=== PATIENT | male | born 1960 | race Caucasian/White ===

== ENCOUNTER 2024-08-23 10:04 | Emergency (ER) | payer OTHER ==
--- OUTSIDE RECORDS SUMMARY | 2024-08-23 10:08 | XMS REPORT | Continuity of Care Document ---
Author Name Unknown Address [address] [facility] [address] [place] [address] [facility] Address [address] [facility]. [address] [place] [address] Care Team Providers Care Records Analysis Manager Name Role Phone RERE HESS Attending Clinician Unavailthiago Roche Attending Clinician Unavailable Inocente Roche I. Attending Clinician UnavailFermin Huffman Attending Clinician Unavailable Kacy Vitale Attending Clinician Unavailable A_Byrd Attending Clinician Unavailable ZAYDA GUERRERO Attending Clinician UnavailSAM Souza Attending Clinician Unavailable ALEXANDER NAJERA Attending Clinician Unavailable KACY URENA Attending Clinician Unavailable CB MANCILLA Attending Clinician Unavailable AMARI LEON Attending Clinician Unavailable SUMEET PRICE Attending Clinician PRANEETH Begum Attending Clinician Unavailable DAYSI MAIER Attending Clinician Unavailable KONG ARANA Attending Clinician Unavailable RENATO NAVA Attending Clinician Unavailable REBECCA GRIFFIN Attending Clinician Unavailable SHARON BRONSON Attending Clinician Unavailable Kaley Admitting Clinician Unavailable A_Byrd Admitting Clinician Unavailable Payers Payer Name Policy Type Policy Number Effective Date Expirati on Date Source [facility] [employer] [id number] 2018 00:00:00 2021 00:00:00 Problems Condition Name Condition Details Condition Category Status Onset Date Resolution Date Last Treatment Date Treating Clinician Comments Source Carcinoma of prostate Carcinoma of Prostate Problem Active 2018-04 00:00: 00 [facility] Decreased hearing Decreased Hearing Problem Active 2018-04 00:00: 00 [facility] Urinary urgency due to benign prostatic hypertroph y Urinary Urgency Due to Benign Prostatic Hypertroph y Problem Active 2018-04 00:00: 00 [facility] Gastroesop hageal reflux disease Gastroesop hageal Reflux Disease Problem Active 07-29 00:00: 00 [facility] Candidiasi s of skin Candidiasi s of Skin Problem Active [facility] Secondary diabetes mellitus Secondary Diabetes Mellitus Problem Active [facility] Type 2 diabetes mellitus without complicati on Type 2 Diabetes Mellitus without Complicati on Problem Active [facility] Hyperlipid emia Hyperlipid emia Problem Active [facility] Impotence Impotence Problem Active [facility] Chronic depression Chronic Depression Problem Active [facility] Insomnia Insomnia Problem Active [facility] Essential hypertensi on Essential Hypertensi on Problem Active [facility] Acute pharyngiti s Acute Pharyngiti s Problem Active [facility] Pharyngiti s Pharyngiti s Problem Active [facility] Upper respirator y infection Upper Respirator y Infection Problem Active [facility] Bronchitis Bronchitis Problem Active [facility] Dyspnea Dyspnea Problem Active [facility] Cough Cough Problem Active [facility] Nausea Nausea Problem Active [facility] Hyperglyce michelle Hyperglyce michelle Problem Active [facility] 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 Minocycl ine Allergy to substanc e Active [facility] Vancomyc in Allergy to substanc e Active [facility] Social History Smoking Status Start Date Stop Date Source Former Smoker [facility] Medications Ordered Medication Name Filled Medication Name Start Date Stop Date Current Medication? Ordering Clinician Indication Dosage Frequency Signature (SIG) Comments Components Source alprazolam 0.25 mg tablet TAKE 1 TABLET BY MOUTH THREE TIMES DAILY NEEDED alprazolam 0.25 mg tablet TAKE 1 TABLET BY MOUTH THREE TIMES DAILY NEEDED No alprazolam 0.25 mg tablet TAKE 1 TABLET BY MOUTH THREE TIMES DAILY NEEDED [facility] atorvastati n 20 mg tablet TAKE 1 TABLET BY MOUTH EVERY DAY AT BEDTIME atorvastati n 20 mg tablet TAKE 1 TABLET BY MOUTH EVERY DAY AT BEDTIME No atorvastat in 20 mg tablet TAKE 1 TABLET BY MOUTH EVERY DAY AT BEDTIME [facility] benzonatate 200 mg capsule TAKE 1 CAPSULE BY MOUTH THREE TIMES DAILY benzonatate 200 mg capsule TAKE 1 CAPSULE BY MOUTH THREE TIMES DAILY No benzonatat e 200 mg capsule TAKE 1 CAPSULE BY MOUTH THREE TIMES DAILY [facility] carvedilol 3.125 mg tablet TAKE 1 TABLET BY MOUTH TWICE DAILY carvedilol 3.125 mg tablet TAKE 1 TABLET BY MOUTH TWICE DAILY No carvedilol 3.125 mg tablet TAKE 1 TABLET BY MOUTH TWICE DAILY [facility] dutasteride 0.5 mg capsule TAKE 1 CAPSULE BY MOUTH EVERY DAY DIRECTED dutasteride 0.5 mg capsule TAKE 1 CAPSULE BY MOUTH EVERY DAY DIRECTED No dutasterid e 0.5 mg capsule TAKE 1 CAPSULE BY MOUTH EVERY DAY DIRECTED [facility] fenofibrate 160 mg tablet TAKE 1 TABLET BY MOUTH EVERY MORNING fenofibrate 160 mg tablet TAKE 1 TABLET BY MOUTH EVERY MORNING No fenofibrat e 160 mg tablet TAKE 1 TABLET BY MOUTH EVERY MORNING [facility] FreeStyle Lite Strips Take 1 strip 4 times a day by miscell. route as directed for 28 days. FreeStyle Lite Strips Take 1 strip 4 times a day by miscell. route as directed for 28 days. No 1strip( s) QID FreeStyle Lite Strips Take 1 strip 4 times a day by miscell. route as directed for 28 days. [facility] hydrocodone 7.5 mg-acetamin ophen 325 mg tablet TAKE 1 TABLET BY MOUTH EVERY 4 TO 6 HOURS NEEDED FOR PAIN hydrocodone 7.5 mg-acetamin ophen 325 mg tablet TAKE 1 TABLET BY MOUTH EVERY 4 TO 6 HOURS NEEDED FOR PAIN No hydrocodon e 7.5 mg-acetami nophen 325 mg tablet TAKE 1 TABLET BY MOUTH EVERY 4 TO 6 HOURS NEEDED FOR PAIN [facility] hydroxyzine HCl 25 mg tablet TAKE 1 TABLET BY MOUTH THREE TIMES DAILY hydroxyzine HCl 25 mg tablet TAKE 1 TABLET BY MOUTH THREE TIMES DAILY No hydroxyzin e HCl 25 mg tablet TAKE 1 TABLET BY MOUTH THREE TIMES DAILY [facility] Janumet 50 mg-500 mg tablet TAKE 1 TABLET BY MOUTH EVERY 12 HOURS Janumet 50 mg-500 mg tablet TAKE 1 TABLET BY MOUTH EVERY 12 HOURS No Janumet 50 mg-500 mg tablet TAKE 1 TABLET BY MOUTH EVERY 12 HOURS [facility] losartan 50 mg-hydrochl orothiazide 12.5 mg tablet TAKE 1 TABLET BY MOUTH EVERY MORNING losartan 50 mg-hydrochl orothiazide 12.5 mg tablet TAKE 1 TABLET BY MOUTH EVERY MORNING No losartan 50 mg-hydroch lorothiazi de 12.5 mg tablet TAKE 1 TABLET BY MOUTH EVERY MORNING [facility] pantoprazol e 40 mg tablet,melba yed release TAKE 1 TABLET BY MOUTH EVERY DAY pantoprazol e 40 mg tablet,melba yed release TAKE 1 TABLET BY MOUTH EVERY DAY No pantoprazo le 40 mg tablet,del ayed release TAKE 1 TABLET BY MOUTH EVERY DAY [facility] sertraline 50 mg tablet TAKE 1 TABLET BY MOUTH EVERY DAY IN THE MORNING sertraline 50 mg tablet TAKE 1 TABLET BY MOUTH EVERY DAY IN THE MORNING No sertraline 50 mg tablet TAKE 1 TABLET BY MOUTH EVERY DAY IN THE MORNING [facility] tadalafil 20 mg tablet TAKE ONE (1) TABLET EVERY 72 HOURS BY ORAL ROUTE DIRECTED. tadalafil 20 mg tablet TAKE ONE (1) TABLET EVERY 72 HOURS BY ORAL ROUTE DIRECTED. No tadalafil 20 mg tablet TAKE ONE (1) TABLET EVERY 72 HOURS BY ORAL ROUTE DIRECTED. [facility] tamsulosin 0.4 mg capsule TAKE 1 CAPSULE BY MOUTH DAILY tamsulosin 0.4 mg capsule TAKE 1 CAPSULE BY MOUTH DAILY No tamsulosin 0.4 mg capsule TAKE 1 CAPSULE BY MOUTH DAILY [facility] Xigduo XR 10 mg-1,000 mg tablet,exte nded release TAKE 1 TABLET BY MOUTH EVERY DAY BEFORE A MEAL Xigduo XR 10 mg-1,000 mg tablet,exte nded release TAKE 1 TABLET BY MOUTH EVERY DAY BEFORE A MEAL No Xigduo XR 10 mg-1,000 mg tablet,ext ended release TAKE 1 TABLET BY MOUTH EVERY DAY BEFORE A MEAL [facility] Vital Signs Vital Name Observation Time Observation Value Comments S ource BP Diastolic 2021-03-04 00:00:00 74 mm[Hg] [facility] Height 2021-03-04 00:00:00 70 [in_i] [facility] BMI (Body Mass Index) 2021-03-04 00:00:00 35.2 kg/m2 [facility] BP Systolic 2021-03-04 00:00:00 112 mm[Hg] [facility] Body Weight 2021-03-04 00:00:00 3920 [oz_av] [facility] BP Diastolic 2020-12-31 00:00:00 85 mm[Hg] [facility] Height 2020-12-31 00:00:00 70 [in_i] [facility] BMI (Body Mass Index) 2020-12-31 00:00:00 35.2 kg/m2 [facility] BP Systolic 2020-12-31 00:00:00 118 mm[Hg] [facility] Body Weight 2020-12-31 00:00:00 3920 [oz_av] [facility] BP Diastolic 2020-12-03 00:00:00 90 mm[Hg] [facility] Height 2020-12-03 00:00:00 70 [in_i] [facility] BMI (Body Mass Index) 2020-12-03 00:00:00 37.3 kg/m2 [facility] BP Systolic 2020-12-03 00:00:00 128 mm[Hg] [facility] Body Weight 2020-12-03 00:00:00 4160 [oz_av] [facility] Height 2020-08-19 00:00:00 70 [in_i] [facility] BP Diastolic 2020-07-01 00:00:00 82 mm[Hg] [facility] Height 2020-07-01 00:00:00 70 [in_i] [facility] BMI (Body Mass Index) 2020-07-01 00:00:00 37.3 kg/m2 [facility] BP Systolic 2020-07-01 00:00:00 124 mm[Hg] [facility] Body Weight 2020-07-01 00:00:00 4160 [oz_av] [facility] BP Diastolic 2020-05-01 00:00:00 80 mm[Hg] [facility] Height 2020-05-01 00:00:00 70 [in_i] [facility] BMI (Body Mass Index) 2020-05-01 00:00:00 36.9 kg/m2 [facility] BP Systolic 2020-05-01 00:00:00 130 mm[Hg] [facility] Body Weight 2020-05-01 00:00:00 4112 [oz_av] [facility] BP Diastolic 2020-02-14 00:00:00 79 mm[Hg] [facility] Height 2020-02-14 00:00:00 70 [in_i] [facility] BMI (Body Mass Index) 2020-02-14 00:00:00 36.9 kg/m2 [facility] BP Systolic 2020-02-14 00:00:00 119 mm[Hg] [facility] Body Weight 2020-02-14 00:00:00 4112 [oz_av] [facility] BP Diastolic 2019-05-03 00:00:00 84 mm[Hg] [facility] Height 2019-05-03 00:00:00 70 [in_i] [facility] BMI (Body Mass Index) 2019-05-03 00:00:00 37.1 kg/m2 [facility] BP Systolic 2019-05-03 00:00:00 123 mm[Hg] [facility] Body Weight 2019-05-03 00:00:00 258.4 [lb_av] [facility] BP Diastolic 2019-04-26 00:00:00 88 mm[Hg] [facility] Height 2019-04-26 00:00:00 70 [in_i] [facility] BMI (Body Mass Index) 2019-04-26 00:00:00 36.9 kg/m2 [facility] BP Systolic 2019-04-26 00:00:00 126 mm[Hg] [facility] Body Weight 2019-04-26 00:00:00 4115 [oz_av] [facility] BP Diastolic 2019-02-28 00:00:00 70 mm[Hg] [facility] Height 2019-02-28 00:00:00 70 [in_i] [facility] BMI (Body Mass Index) 2019-02-28 00:00:00 36.1 kg/m2 [facility] BP Systolic 2019-02-28 00:00:00 118 mm[Hg] [facility] Body Weight 2019-02-28 00:00:00 4028.8 [oz_av] [facility] Height 2019-02-22 00:00:00 70 [in_i] [facility] BP Diastolic 2019-01-17 00:00:00 81 mm[Hg] [facility] Height 2019-01-17 00:00:00 70 [in_i] [facility] BMI (Body Mass Index) 2019-01-17 00:00:00 36.4 kg/m2 [facility] BP Systolic 2019-01-17 00:00:00 122 mm[Hg] [facility] Body Weight 2019-01-17 00:00:00 4057 [oz_av] [facility] BP Diastolic 2018-11-29 00:00:00 67 mm[Hg] [facility] Height 2018-11-29 00:00:00 70 [in_i] [facility] BMI (Body Mass Index) 2018-11-29 00:00:00 35.3 kg/m2 [facility] BP Systolic 2018-11-29 00:00:00 100 mm[Hg] [facility] Body Weight 2018-11-29 00:00:00 3934.4 [oz_av] [facility] BP Diastolic 2018-10-23 00:00:00 75 mm[Hg] [facility] Height 2018-10-23 00:00:00 70 [in_i] [facility] BMI (Body Mass Index) 2018-10-23 00:00:00 36 kg/m2 [facility] BP Systolic 2018-10-23 00:00:00 123 mm[Hg] [facility] Body Weight 2018-10-23 00:00:00 4017.6 [oz_av] [facility] BP Diastolic 2018-09-06 00:00:00 84 mm[Hg] [facility] Height 2018-09-06 00:00:00 70 [in_i] [facility] BMI (Body Mass Index) 2018-09-06 00:00:00 36.7 kg/m2 [facility] BP Systolic 2018-09-06 00:00:00 122 mm[Hg] [facility] Body Weight 2018-09-06 00:00:00 4087 [oz_av] [facility] BP Diastolic 2018-05-11 00:00:00 82 mm[Hg] [facility] Height 2018-05-11 00:00:00 70 [in_i] [facility] BMI (Body Mass Index) 2018-05-11 00:00:00 37.7 kg/m2 [facility] BP Systolic 2018-05-11 00:00:00 133 mm[Hg] [facility] Body Weight 2018-05-11 00:00:00 4198.4 [oz_av] [facility] Procedures Procedure Date / Time Performed Performing Clinician Source ECG WITH INTERPRETATION 12 LEADS 2020-12-03 00:00:00 [facility] ECG WITH INTERPRETATION 12 LEADS 2020-02-14 00:00:00 [facility] TYMPANOMETRY 2019-05-03 [facility], [facility] + coccyx 2018-05-11 00:00:00 [facility] Cholecystectomy 2014-04-24 00:00:00 [facility] Back Surgery 2010-04-24 00:00:00 [facility] Appendectomy 1975-04-24 00:00:00 [facility] Total Knee Replacement [facility] Plan of Care Planned Activity Planned Date Details Comments Source Instructions [facility] Encounters Start Date/Time End Date/Time Encounter Type Admission Type Attending Clinicians Care Facility Care Department Encounter ID Source 2023-10-17 08:17:00 2023-10-17 08:17:00 Outpatient RERE MONTILLA [facility] [id number] [facility] 2023-07-12 08:45:00 2023-07-12 08:45:00 Outpatient RERE MONTILLA [facility] [id number] [facility] 2022-12-27 11:18:00 2022-12-27 11:18:00 Outpatient RERE MONTILLA [facility] [id number] [facility] 2022-07-21 10:53:00 2022-07-21 10:53:00 Outpatient RERE MONTILLA [facility] [id number] [facility] 2022-01-25 15:57:00 2022-01-25 15:57:00 Outpatient RERE MONTILLA [facility] [id number] [facility] 2021-08-24 09:11:00 2021-08-24 09:11:00 Outpatient RERE MONTILLA [facility] [id number] [facility] 2021-06-08 11:17:00 2021-06-08 11:17:00 Outpatient RERE MONTILLA [facility] [id number] [facility] 2021-04-22 00:00:00 2021-04-22 00:00:00 Outpatient Amborianaux IMANIG [facility] [id number] [facility] 2021-03-04 00:00:00 2021-03-04 00:00:00 GABRIELLA Velasco: [address] [place] [address] , Ph. Ambwilfredo [place]OW[place] - [facility] [id number] [facility] 2021-02-02 11:16:00 2021-02-02 11:16:00 Outpatient Ambeaux [facility] [id number] [facility] 2021-01-28 08:23:00 2021-01-28 08:23:00 Outpatient Inocente Sow [facility] [id number] [facility] 2021-01-01 03:57:00 2021-01-01 03:57:00 Outpatient Ambeaux [facility] [id number] [facility] 2020-12-31 00:00:00 2020-12-31 00:00:00 Inocente Roche PA: [address], [place] [address] , Ph. Ambeaux [facility] [id number] [facility] 2020-12-29 12:15:00 2020-12-29 12:15:00 [facility] [id number] [facility] 2020-12-03 11:43:00 2020-12-03 11:43:00 Outpatient Inocente Sow [facility] [id number] [facility] 2020-12-03 00:00:00 2020-12-03 00:00:00 Inocente Roche PA: [address], [place] [address] , Ph. Ambeaux [facility] [id number] [facility] 2020-08-19 14:45:00 2020-08-19 14:45:00 Outpatient Inocente Sow [facility] [id number] [facility] 2020-08-19 00:00:00 2020-08-19 00:00:00 Inocente Roche PA: [address], [place] [address] , Ph. Ambeaux [facility] [id number] [facility] 2020-07-06 07:51:00 2020-07-06 07:51:00 Outpatient Inocente Sow [facility] [id number] [facility] 2020-07-06 07:26:00 2020-07-06 07:26:00 Outpatient Ambeaux [facility] [id number] [facility] 2020-07-01 00:00:00 2020-07-01 00:00:00 Inocente Roche PA: [address], [place] [address] , Ph. Ambeaux MM[facility] [id number] [facility] 2020-05-09 11:45:00 2020-05-09 11:45:00 Outpatient Ambeaux [facility] [id number] [facility] 2020-05-01 00:00:00 2020-05-01 00:00:00 Inocente Roche PA: [address], [place] [address] , Ph. Ambeaux MM[facility] [id number] [facility] 2020-03-18 07:38:00 2020-03-18 07:38:00 Outpatient Fermin Scherer [facility] [id number] [facility] 2020-03-16 11:30:00 2020-03-16 11:30:00 Outpatient Kacy Lee [facility] [id number] [facility] 2020-03-11 02:46:00 2020-03-11 02:46:00 Outpatient Ambeaux [facility] [id number] [facility] 2020-02-26 05:37:00 2020-02-26 05:37:00 Outpatient Ambeaux [facility] [id number] [facility] 2020-02-24 03:32:00 2020-02-24 03:32:00 Outpatient Ambeaux [facility] [id number] [facility] 2020-02-14 11:05:00 2020-02-14 11:05:00 Outpatient Inocente Sow [facility] [id number] [facility] 2020-02-14 00:00:00 2020-02-14 00:00:00 Inocente Roche PA: [address], [place] [address] , Ph. Ambeaux [facility] 102 [facility] 2019-06-05 03:16:00 2019-06-05 03:16:00 Outpatient A_Byrd [facility] [id number] [facility] 2019-05-06 05:09:00 2019-05-06 05:09:00 Outpatient A_Byrd [facility] [id number] [facility] 2019-05-03 00:00:00 2019-05-03 00:00:00 Alva Kim MD: [address], [address], [place] [address] , Ph. A_Byrd [facility] - Otolaryngol ogy-MOB 0110 [facility] 2019-04-28 09:48:00 2019-04-28 09:48:00 Outpatient A_Byrd [facility] [id number] [facility] 2019-04-26 00:00:00 2019-04-26 00:00:00 Inocente Roche PA: [address], [place] [address] , Ph. A_Byrd [facility] [id number] [facility] 2019-03-04 07:04:00 2019-03-04 07:04:00 Outpatient Inocente Sow [facility] [id number] [facility] 2019-02-28 00:00:00 2019-02-28 00:00:00 Inocente Roche PA: [address], [place] [address] , Ph. [facility] 1107 [facility] 2019-02-22 00:00:00 2019-02-22 00:00:00 Inocente Roche PA: [address], [place] [address] , Ph. [facility] 1101 [facility] 2019-01-17 00:00:00 2019-01-17 00:00:00 Frida Del Rio VP INFORMATICS: [address], [place] [address] , Ph. [facility] 0926 [facility] 2018-11-29 00:00:00 2018-11-29 00:00:00 Inocente Roche PA: [address], [address], [place] [address] , Ph. [facility] 0808 [facility] 2018-11-22 08:05:00 2018-11-22 08:05:00 Outpatient Inocente Sow [facility] [id number] [facility] 2018-11-04 10:20:00 2018-11-04 10:20:00 Outpatient ZAYDA CUADRA [facility] [id number] [facility] 2018-10-23 08:05:00 2018-10-23 08:05:00 Outpatient Inocente Sow [facility] [id number] [facility] 2018-10-23 00:00:00 2018-10-23 00:00:00 Inocente Ambeaux, PA: [address], [address], [place] [address] , Ph. [facility] 0702 [facility] 2018-09-06 00:00:00 2018-09-06 00:00:00 Frida Del Rio, VP INFORMATICS: [address], [address], [place] [address] , Ph. [facility] 0516 [facility] 2018-05-11 00:00:00 2018-05-11 00:00:00 Inocente Roche, PA: [address], [address], [place] [address] , Ph. [facility] 0118 [facility] 2018-04-20 08:23:00 2018-04-20 08:23:00 Outpatient Inocente Sow [facility] [id number] [facility] 2017-12-27 12:40:00 2017-12-27 12:40:00 Outpatient SAM DENTON [facility] [id number] [facility] 2017-11-30 13:36:00 2017-11-30 13:36:00 Outpatient ALEXANDER ATKINSON [facility] [id number] [facility] 2017-09-12 09:42:00 2017-09-12 09:42:00 Outpatient KACY TERRAZAS [facility] [id number] [facility] 2017-08-03 10:05:00 2017-08-03 10:05:00 Outpatient CB RIVERA [facility] [id number] [facility] 2017-08-02 08:00:00 2017-08-02 08:00:00 Outpatient CB RIVERA [facility] [id number] [facility] 2017-05-16 10:55:00 2017-05-16 10:55:00 Outpatient JACKIE SAM THOMPSON [facility] [id number] [facility] 2017-01-24 07:23:00 2017-01-24 07:23:00 Outpatient CB RIVERA [facility] [id number] [facility] 2016-07-27 08:07:00 2016-07-27 08:07:00 Outpatient CB RIVERA [facility] [id number] [facility] 2016-03-22 08:33:00 2016-03-22 08:33:00 Outpatient CB RIVERA [facility] [id number] [facility] 2016-01-07 14:14:00 2016-01-07 19:31:00 Emergency ER EDWARDAMARI [facility] [id number] [facility] 2015-12-14 08:25:00 2015-12-14 08:25:00 Outpatient CB RIVERA [facility] [id number] [facility] 2015-11-10 07:59:00 2015-11-10 07:59:00 Outpatient CB [facility] [id number] [facility] 2015-08-11 08:05:00 2015-08-11 08:05:00 Outpatient [facility] [id number] [facility] 2015-05-12 09:32:00 2015-05-12 09:32:00 Outpatient [facility] [id number] [facility] 2015-05-07 10:03:00 2015-05-07 10:03:00 Outpatient [facility] [id number] [facility] 2014-12-31 14:19:00 2014-12-31 14:19:00 Outpatient SUMEET [facility] [id number] [facility] 2014-12-04 14:35:00 2014-12-04 14:35:00 Outpatient SU[facility]ET [facility] [id number] [facility] 2014-11-11 12:54:00 2014-11-11 12:54:00 Outpatient [facility] [id number] [facility] 2014-10-27 12:22:00 2014-10-27 12:22:00 Outpatient [facility] [id number] [facility] 2014-10-03 18:58:00 2014-10-21 00:01:00 Outpatient [facility] [id number] [facility] 2014-10-20 08:13:00 2014-10-20 08:13:00 Outpatient [facility] [id number] [facility] 2014-10-13 14:15:00 2014-10-13 14:15:00 Outpatient [facility] [id number] [facility] 2014-10-12 09:59:00 2014-10-12 13:22:00 Emergency ER PRANEETH FOX [facility] [id number] [facility] 2014-10-04 08:41:00 2014-10-04 09:44:00 Emergency ER DAYSI MAIER [facility] [id number] [facility] 2014-09-29 06:12:00 2014-09-29 06:12:00 Outpatient EL KONG ARANA [facility] [id number] [facility] 2014-09-13 17:49:00 2014-09-14 00:21:00 Emergency ER RENATO NAVA [facility] [id number] [facility] 2014-08-19 15:58:00 2014-08-19 15:58:00 Outpatient JACKIE MANCILLA ALAN [facility] [id number] [facility] 2014-05-19 15:43:00 2014-05-19 15:43:00 Outpatient JACKIE MANCILLA [facility] [id number] [facility] 2014-05-08 05:49:00 2014-05-08 05:49:00 Outpatient JACKIE REBECCA GRIFFIN [facility] [id number] [facility] 2013-07-25 16:02:00 2013-07-25 17:55:00 Emergency ER SHARON BRONSON [facility] [id number] [facility] 2013-07-05 07:37:00 2013-07-05 07:37:00 Outpatient JACKIE Kaley Inocente [facility] [id number] [facility] Results Test Description Test Time Test Comments Results Result Comments Source Microalbumin [Mass/volume] in Urine 12-03 16:43 :00 NormalMicroalbulminuriaMacroalbumin[facility] - Serum or [id number] 09:55:00* Test Item Value Reference Range Interpretation Comme nts cholesterol level (test code = cholesterol level) 122 mg/dL 150-200 L triglycerides level (test co de = triglycerides level) 243 mg/dL <150 H HDL cholesterol (test code = HDL cholesterol) 28 mg/dL >55 L LDL cholesterol direct (test code = LDL cholesterol direct) 65 mg/dL <100 cholesterol risk ratio (test code = cholesterol risk ratio) 4.357 [facility] - [id number] 00:00:00 * Test Item Value Reference Range Interpretation Comme nts white blood count (test code = white blood count) 7.2 K/uL 4.0-12.3 red blood count (test code = red blood count) 4.97 M/uL 3.80-5.80 hemoglobin (test code = hemoglobin) 15.4 g/dL 11.7-17.2 hematocrit (test code = hematocrit) 45.0 % 35.0-51.0 MCV [Entitic volume] (test c ode = 63018-5) 90.5 fL 83-100 mean corpuscular hemoglobin (test code = mean corpuscular hemoglobin) 31.0 pg 26.8-33.4 mean corpuscular HGB conc (t est code = mean corpuscular HGB conc) 34.2 g/dL 30-35 red cell distribution width (test code = red cell distribution width) 13.3 % 12.0-14.0 platelet count (test code = platelet count) 204 K/uL 175-450 mean platelet volume (test c ode = mean platelet volume) 11.3 fL 9.4-12.6 Segmented neutrophils/100 leukocytes in Blood (test code = 46289-2) 66.1 % 44.7-82.4 Immature granulocytes [#/vol ume] in Blood (test code = 87658-8) 0.0 K/uL 0.0-0.03 lymphocyte% (test code = lymphocyte%) 22.1 % 10.0-50.0 mono % (test code = mono %) 8.0 % 3.9-13.4 eos % (test code = eos %) 2.8 % 0.0-6.4 Basophils/100 leukocytes in Unspecified specimen (test code = 72090-1) 0.7 % 0.2-1.2 Band form neutrophils [#/vol ume] in Blood (test code = 99778-9) 4.73 K/uL 1.78-5.38 Lymphocytes [#/volume] in Unspecified specimen by Automated count (test code = 21201-9) 1.6 K/uL 1.32-3.57 mono # (test code = mono #) 0.57 K/uL 0.30-0.82 eos # (test code = eos #) 0.20 K/uL 0.04-0.54 basophil # (test code = baso akosua #) 0.05 K/uL 0.01-0.08 NRBC% (test code = NRBC%) 0 /100 WBC 0-0.2 NRBC# (test code = NRBC#) 0 K/uL [facility]album[facility] [Mass/volume] in [id number] 00:00:00* Test Item Value Reference Range Interpretation Comme nts microalbumin random (test co de = microalbumin random) <12.0 0-20 [facility] HospitalThyrotropin [Units/volume] in Serum or [id number] 00:00:00* Test Item Value Reference Range Interpretation Comme nts Thyrotropin [Units/volume] i n Serum or Plasma (test code = 3016-3) 3.42 uIU/mL 0.36-3.74 [facility] HospitalThyroxine (T4) [Mass/volume] in Serum or [id number] 00:00:00* Test Item Value Reference Range Interpretation Comme nts T4 (test code = T4) 7.6 ug/dL 4.5-11.7 [facility]v vca ea & [id number] 12:49:00* Test Item Value Reference Range Interpretation Comme nts ebv Ab ea (test code = ebv Ab ea) 55.8 U/mL 0.0-8.9 H Wilder Ross virus capsid Ig G Ab [Presence] in Serum (test code = 18625-2) 316.0 U/mL 0.0-17.9 H [facility] HospitalCytomegalovirus IgG Ab [Units/volume] in Serum or Plasma 2020-08-19 12:49:00* Test Item Value Reference Range Interpretation Comme nts CMV IgG Ab (test code = CMV IgG Ab) <0.60 0.00-0.59 [facility] Differential panel - [id number] 05:54:00 * Test Item Value Reference Range Interpretation Comme nts white blood count (test code = white blood count) 5.8 K/uL 4.0-12.3 red blood count (test code = red blood count) 5.23 M/uL 3.80-5.80 hemoglobin (test code = hemoglobin) 16.5 g/dL 11.7-17.2 hematocrit (test code = hematocrit) 46.8 % 35.0-51.0 MCV [Entitic volume] (test c ode = 69343-5) 89.5 fL 83-100 mean corpuscular hemoglobin (test code = mean corpuscular hemoglobin) 31.5 pg 26.8-33.4 mean corpuscular HGB conc (t est code = mean corpuscular HGB conc) 35.3 g/dL 30-35 H red cell distribution width (test code = red cell distribution width) 12.4 % 12.0-14.0 platelet count (test code = platelet count) 209 K/uL 175-450 mean platelet volume (test c ode = mean platelet volume) 10.2 fL 9.4-12.6 Segmented neutrophils/100 leukocytes in Blood (test code = 82543-5) 63.7 % 44.7-82.4 Immature granulocytes [#/vol ume] in Blood (test code = 69179-8) 0.0 K/uL 0.0-0.03 lymphocyte% (test code = lymphocyte%) 24.2 % 10.0-50.0 mono % (test code = mono %) 8.6 % 3.9-13.4 eos % (test code = eos %) 2.4 % 0.0-6.4 Basophils/100 leukocytes in Unspecified specimen (test code = 28836-1) 0.9 % 0.2-1.2 Band form neutrophils [#/vol ume] in Blood (test code = 59881-7) 3.69 K/uL 1.78-5.38 Lymphocytes [#/volume] in Unspecified specimen by Automated count (test code = 21890-4) 1.4 K/uL 1.32-3.57 mono # (test code = mono #) 0.50 K/uL 0.30-0.82 eos # (test code = eos #) 0.14 K/uL 0.04-0.54 basophil # (test code = baso akosua #) 0.05 K/uL 0.01-0.08 NRBC% (test code = NRBC%) 0 /100 WBC 0-0.2 NRBC# (test code = NRBC#) 0 K/uL [facility]Differential panel, method unspecified - [id number] 05:54:00NeutrophilsLymphocyteAtypical LymphMonocytePlatelet EstimateToxic VacuolationMagoSimpson General HospitalMicroalbumin [Mass/volume] in [id number] 05:54:00* Test Item Value Reference Range Interpretation Comme nts microalbumin random (test co de = microalbumin random) <12.0 0-20 [facility] HospitalHemoglobin A1c [Mass/volume] in [id number] 05:54:00 * Test Item Value Reference Range Interpretation Comme nts Hemoglobin A1c [Mass/volume] in Blood (test code = 11329-8) 6.3 % 4.0-6.0 H [facility] 1996 panel - Serum or [id number] 05:54:00* Test Item Value Reference Range Interpretation Comme nts cholesterol level (test code = cholesterol level) 111 mg/dL 150-200 L triglycerides level (test co de = triglycerides level) 226 mg/dL <150 H HDL cholesterol (test code = HDL cholesterol) 25 mg/dL >55 L LDL cholesterol direct (test code = LDL cholesterol direct) 65 mg/dL <100 cholesterol risk ratio (test code = cholesterol risk ratio) 4.440 [facility] HospitalThyrotropin [Units/volume] in Serum or [id number] 05:54:00* Test Item Value Reference Range Interpretation Comme nts Thyrotropin [Units/volume] i n Serum or Plasma (test code = 3016-3) 2.93 uIU/mL 0.36-3.74 [facility] HospitalThyroxine (T4) [Mass/volume] in Serum or [id number] 05:54:00* Test Item Value Reference Range Interpretation Comme nts T4 (test code = T4) 6.3 ug/dL 4.5-11.7 [facility] HospitalFolate+Cyanocobalamin [Interpretation] in Serum or Blood 2020-02-17 05:54:00* Test Item Value Reference Range Interpretation Comme nts vitamin B12 (test code = vit vieira B12) 389.7 pg/mL 211-946 folate (test code = folate) 12.89 NG/mL 4.78-24.2 [facility] HospitalLmibajhmwqfbem6664-88-88 13:30:00* Test Item Value Reference Range Interpretation Comme nts Adenovirus Ab [Presence] in Unspecified specimen (test code = 57567-7) not detected not detect Coronavirus Ab [Units/volume ] in Serum (test code = 5099-7) not detected not detect Human metapneumovirus RNA [Presence] in Unspecified specimen by NUBIA with probe detection (test code = 12658-8) not detected not detect Rhinovirus+Enterovirus RNA [Presence] in Unspecified specimen by NUBIA with probe detection (test code = 56159-2) not detected not detect Influenza virus A Ag [Presen ce] in Unspecified specimen (test code = 95947-3) not detected not detect Influenza virus A H1 2009 pandemic RNA [Presence] in Unspecified specimen by NUBIA with probe detection (test code = 73289-0) not detected not detect Influenza virus A H3 RNA [Presence] in Isolate by NUBIA with probe detection (test code = 78285-7) not detected not detect Influenza virus B Ag [Presen ce] in Unspecified specimen (test code = 86755-0) not detected not detect Parainfluenza virus 1 Ab [Ti ter] in Serum by Complement fixation (test code = 5268-8) not detected not detect Parainfluenza virus 2 Ab [Ti ter] in Serum by Complement fixation (test code = 5269-6) not detected not detect Parainfluenza virus 3 RNA [Presence] in Isolate by NUBIA with probe detection (test code = 62296-9) not detected not detect Parainfluenza virus 4 RNA [Presence] in Unspecified specimen by NUBIA with probe detection (test code = 05369-5) not detected not detect resp syn virus A (test code = resp syn virus A) not detected not detect resp syn virus B (test code = resp syn virus B) not detected not detect Chlamydophila pneumoniae DNA [Presence] in Unspecified specimen by NBUIA with probe detection (test code = 12110-2) not detected not detect Mycoplasma pneumoniae IgG an d IgM panel - Serum (test code = 58582-9) not detected not detect [facility] HospitalJhfsxocbwjcpndfm3207-79-22 10:07:17* Test Item Value Reference Range Interpretation Comme nts Right (test code = Right) Type A Normal Left (test code = Left) Type A Normal [facility] W Auto Differential panel - [id number] 06:10:00 * Test Item Value Reference Range Interpretation Comme nts white blood count (test code = white blood count) 5.7 K/uL 4.0-12.3 red blood count (test code = red blood count) 4.88 M/uL 3.80-5.80 hemoglobin (test code = hemoglobin) 15.0 g/dL 11.7-17.2 hematocrit (test code = hematocrit) 43.4 % 35.0-51.0 Erythrocyte mean corpuscular volume [Entitic volume] (test code = 79699-1) 88.9 fL 83-100 mean corpuscular hemoglobin (test code = mean corpuscular hemoglobin) 30.7 pg 26.8-33.4 mean corpuscular HGB conc (t est code = mean corpuscular HGB conc) 34.6 g/dL 30-35 red cell distribution width (test code = red cell distribution width) 13.0 % 12.0-14.0 platelet count (test code = platelet count) 182 K/uL 175-450 mean platelet volume (test c ode = mean platelet volume) 10.4 fL 9.4-12.6 Neutrophils.segmented/100 leukocytes in Blood (test code = 12954-0) 68.5 % 44.7-82.4 Granulocytes Immature [#/vol ume] in Blood (test code = 80495-8) 0.0 K/uL 0.0-0.03 lymphocyte% (test code = lymphocyte%) 20.0 % 10.0-50.0 mono % (test code = mono %) 8.6 % 3.9-13.4 eos % (test code = eos %) 2.3 % 0.0-6.4 Basophils/100 leukocytes in Unspecified specimen (test code = 70313-7) 0.4 % 0.2-1.2 Neutrophils.band form [#/vol ume] in Blood (test code = 97561-6) 3.91 K/uL 1.78-5.38 Lymphocytes [#/volume] in Unspecified specimen by Automated count (test code = 68957-0) 1.1 K/uL 1.32-3.57 L mono # (test code = mono #) 0.49 K/uL 0.30-0.82 eos # (test code = eos #) 0.13 K/uL 0.04-0.54 basophil # (test code = baso akosua #) 0.02 K/uL 0.01-0.08 NRBC% (test code = NRBC%) 0 /100 WBC 0-0.2 NRBC# (test code = NRBC#) 0 K/uL [facility]Com[facility] 2000 [facility] - Serum or Plasma 2019-03-04 06:10:00* Test Item Value Reference Range Interpretation Comme nts glucose (test code = glucose) 133 mg/dL 82-115 H Urea nitrogen [Mass/volume] in Serum or Plasma (test code = 3094-0) 16 mg/dL 8-23 osmolality calculated,serum (test code = osmolality calculated,serum) 283 mOsm/kg 280-300 creatinine (test code = creatinine) 0.8 mg/dL 0.70-1.20 glomerular filtration rate ( test code = glomerular filtration rate) >60.00 Urea nitrogen/Creatinine [Ma ss Ratio] in Serum or Plasma (test code = 3097-3) 20.0 12-20 sodium level (test code = so dium level) 140 mmol/L 135-145 Potassium [Moles/volume] in Body fluid (test code = 2821-7) 3.8 mmol/L 3.5-5.2 chloride level (test code = chloride level) 105 mmol/L 98-108 CO2 (test code = CO2) 25 mmol/L 21-32 anion gap (test code = anion gap) 13.8 mEq/L 12-20 calcium level (test code = calcium level) 9.4 mg/dL 8.8-10.2 total protein (test code = t otal protein) 7.0 g/dL 6.6-8.7 albumin (test code = albumin) 4.7 g/dL 3.5-5.2 globulin (test code = globulin) 2.3 gm/dL A/G ratio (test code = A/G ratio) 2.0 >1.0 bilirubin,total (test code = bilirubin,total) 0.6 mg/dL 0.0-1.2 AST/SGOT (test code = AST/SGOT) 39 U/L 15-40 Alanine aminotransferase [Enzymatic activity/volume] in Serum or Plasma (test code = 1742-6) 38 U/L 0-41 Alkaline phosphatase [Enzyma tic activity/volume] in Serum or Plasma (test code = 6768-6) 63 U/L 40-130 [facility] panel - Serum or [id number] 06:10:00* Test Item Value Reference Range Interpretation Comme nts cholesterol level (test code = cholesterol level) 107 mg/dL 150-200 L triglycerides level (test co de = triglycerides level) 131 mg/dL <150 HDL cholesterol (test code = HDL cholesterol) 27 mg/dL >55 L LDL cholesterol direct (test code = LDL cholesterol direct) 68 mg/dL <100 cholesterol risk ratio (test code = cholesterol risk ratio) 3.962 [facility] HospitalUrinalysis complete W Reflex Culture panel - Urine 2019-03-04 06:10:00* Test Item Value Reference Range Interpretation Comme nts Color of Urine by Auto (test code = 17487-9) yellow Appearance of Urine (test co de = 5767-9) clear clear Glucose [Mass/volume] in Uri ne (test code = 2350-7) >=1000 negative H bilirubin, urine (test code = bilirubin, urine) negative negative ketone, urine (test code = ketone, urine) negative negative Specific gravity of Urine by Automated test strip (test code = 25230-9) 1.015 1.003-1.030 Hemoglobin [Presence] in Uri ne by Test strip (test code = 5794-3) negative negative pH of Urine (test code = 2756-5) 6.500 5-9 protein urine (UA) (test cod e = protein urine (UA)) negative negative Urobilinogen [Presence] in Urine (test code = 73417-3) 2.0 E.U./dL 0.2-1.0 Nitrite [Presence] in Urine by Test strip (test code = 5802-4) negative negative urine leukocyte esterase (te st code = urine leukocyte esterase) negative negative Erythrocytes [Presence] in Urine (test code = 81732-9) =0-3 0-5 WBC, urine (test code = WBC, urine) =0-5 0-5 Epithelial cells [Presence] in Urine sediment by Light microscopy (test code = 38180-3) =0-5 0-5 bacteria, urine (test code = bacteria, urine) none detected none detect Casts [#/area] in Urine sediment by Automated count (test code = 25835-7) none seen none detect urine culture added? (test c ode = urine culture added?) no [facility] GroupHemoglobin A1c [Mass/volume] in [id number] 06:10:00 * Test Item Value Reference Range Interpretation Comme nts Hemoglobin A1c [Mass/volume] in Blood (test code = 26932-5) 6.2 % 4.0-6.0 H [facility] HospitalThyrotropin [Units/volume] in Serum or [id number] 06:10:00* Test Item Value Reference Range Interpretation Comme nts Thyrotropin [Units/volume] i n Serum or Plasma (test code = 3016-3) 3.64 uIU/mL 0.36-3.74 [facility] HospitalThyroxine (T4) [Mass/volume] in Serum or [id number] 06:10:00* Test Item Value Reference Range Interpretation Comme nts T4 (test code = T4) 7.4 ug/dL 4.5-11.7 [facility]rep [facility], [id number] 08:30:00Results [facility] 2000 [facility] - Serum or Plasma 2018-10-23 06:16:00* Test Item Value Reference Range Interpretation Comme nts glucose (test code = glucose) 250 mg/dL 74-106 H Urea nitrogen [Mass/volume] in Serum or Plasma (test code = 3094-0) 19 mg/dL 6-20 Osmolality of Serum or Plasm a (test code = 2692-2) 281 280-300 creatinine (test code = creatinine) 0.7 mg/dL 0.70-1.20 glomerular filtration rate ( test code = glomerular filtration rate) >60.00 Urea nitrogen/Creatinine [Ma ss Ratio] in Serum or Plasma (test code = 3097-3) 27.1 12-20 H sodium level (test code = so dium level) 135 mmol/L 135-145 Potassium [Moles/volume] in Body fluid (test code = 2821-7) 4.5 mmol/L 3.5-5.2 chloride level (test code = chloride level) 97 mmol/L 98-108 L CO2 (test code = CO2) 23 mmol/L 21-32 anion gap (test code = anion gap) 19.5 mEq/L 12-20 calcium level (test code = c alcium level) 9.8 mg/dL 8.6-10.0 total protein (test code = t otal protein) 7.2 g/dL 6.6-8.7 albumin (test code = albumin) 4.4 g/dL 3.5-5.2 globulin (test code = globulin) 2.8 gm/dL A/G ratio (test code = A/G ratio) 1.6 >1.0 bilirubin,total (test code = bilirubin,total) 0.6 mg/dL 0.0-1.2 AST/SGOT (test code = AST/SGOT) 31 U/L 15-40 Alanine aminotransferase [Enzymatic activity/volume] in Serum or Plasma (test code = 1742-6) 47 U/L 0-41 H Alkaline phosphatase [Enzyma tic activity/volume] in Serum or Plasma (test code = 6768-6) 80 U/L 40-130 [facility] - [facility] or [id number] 06:16:00* Test Item Value Reference Range Interpretation Comme nts cholesterol level (test code = cholesterol level) 147 mg/dL 150-200 L triglycerides level (test co de = triglycerides level) 410 mg/dL <150 H HDL cholesterol (test code = HDL cholesterol) 22 mg/dL >55 L LDL cholesterol direct (test code = LDL cholesterol direct) 89 mg/dL <100 cholesterol risk ratio (test code = cholesterol risk ratio) 6.681 [facility] W Auto Differential panel - [id number] 06:16:00 * Test Item Value Reference Range Interpretation Comme nts white blood count (test code = white blood count) 5.0 K/uL 4.0-12.3 red blood count (test code = red blood count) 5.50 M/uL 3.80-5.80 hemoglobin (test code = hemoglobin) 16.5 g/dL 11.7-17.2 hematocrit (test code = hematocrit) 48.2 % 35.0-51.0 Erythrocyte mean corpuscular volume [Entitic volume] (test code = 33924-2) 87.6 fL 83-100 Erythrocyte mean corpuscular hemoglobin [Entitic mass] (test code = 55823-9) 30.0 pg 26.8-33.4 mean corpuscular HGB conc (t est code = mean corpuscular HGB conc) 34.2 g/dL 30-35 red cell distribution width (test code = red cell distribution width) 12.2 % 12.0-14.0 platelet count (test code = platelet count) 200 K/uL 175-450 mean platelet volume (test c ode = mean platelet volume) 10.5 fL 9.4-12.6 Neutrophils.segmented/100 leukocytes in Blood (test code = 77724-2) 67.9 % 44.7-82.4 Ig% (test code = Ig%) 0.4 % 0.0-0.4 lymphocyte% (test code = lymphocyte%) 21.7 % 10.0-50.0 Monocytes/100 leukocytes in Blood by Automated count (test code = 5905-5) 8.0 % 3.9-13.4 Eosinophils/100 leukocytes i n Blood by Automated count (test code = 713-8) 1.4 % 0.0-6.4 Basophils/100 leukocytes in Unspecified specimen (test code = 64343-0) 0.6 % 0.2-1.2 absolute neutrophil count (t est code = absolute neutrophil count) 3.42 K/uL 1.78-5.38 Ig# (test code = Ig#) 0.0 K/uL 0.0-0.03 Lymphocytes [#/volume] in Unspecified specimen by Automated count (test code = 48456-8) 1.1 K/uL 1.32-3.57 L mono # (test code = mono #) 0.40 K/uL 0.30-0.82 eos # (test code = eos #) 0.07 K/uL 0.04-0.54 basophil # (test code = baso akosua #) 0.03 K/uL 0.01-0.08 NRBC% (test code = NRBC%) 0 /100 WBC 0-0.2 NRBC# (test code = NRBC#) 0 K/uL [facility], [id number] 06:16:00 NeutrophilsBandLymphocyteAtypical LymphMonocyteEosinophilBasophilMetamyelocytePlatelet EstimatePlatelet MorphologyToxic VacuolationGiant PlateletsMatagoSimpson General HospitalMicroalbumin [Mass/volume] in [id number] 06:16:00* Test Item Value Reference Range Interpretation Comme nts microalbumin random (test co de = microalbumin random) 22.4 mg/L 0-20 H [facility] HospitalHemoglobin A1c [Mass/volume] in [id number] 06:16:00 * Test Item Value Reference Range Interpretation Comme nts Hemoglobin A1c in Blood (alec t code = 11787-0) 10.0 % 4.0-6.0 H [facility] HospitalThyrotropin [Units/volume] in Serum or [id number] 06:16:00* Test Item Value Reference Range Interpretation Comme nts Thyrotropin [Units/volume] i n Serum or Plasma (test code = 3016-3) 3.56 uIU/mL 0.36-3.74 [facility], [id number] 10:19:00* Test Item Value Reference Range Interpretation Comme nts Strep Result (test code = St rep Result) negative [facility] Differential panel - [id number] 07:45:00 * Test Item Value Reference Range Interpretation Comme nts white blood count (test code = white blood count) 5.4 K/uL 4.0-12.3 red blood count (test code = red blood count) 5.35 M/uL 3.80-5.80 Hemoglobin [Mass/volume] in Blood (test code = 718-7) 17.0 g/dL 11.67-17.22 hematocrit (test code = hematocrit) 48.5 % 35.0-51.0 Erythrocyte mean corpuscular volume [Entitic volume] (test code = 61620-8) 90.5 fL 78-96 Erythrocyte mean corpuscular hemoglobin [Entitic mass] (test code = 87455-2) 31.7 pg 26.8-33.4 mean corpuscular HGB conc (t est code = mean corpuscular HGB conc) 35.0 g/dL 32.3-36.7 red cell distribution width (test code = red cell distribution width) 11.6 % 11.6-15.4 Platelets [#/volume] in Bloo d (test code = 44281-0) 203 K/uL 115-328 Platelet mean volume [Entiti c volume] in Blood (test code = 74547-5) 8.6 fL 8.4-11.8 Neutrophils.band form/100 leukocytes in Blood (test code = 96614-5) 60.5 % 44.7-82.4 Lymphocytes/100 leukocytes i n Body fluid (test code = 69577-2) 28.6 % 10.0-50.0 Monocytes/100 leukocytes in Blood by Automated count (test code = 5905-5) 7.1 % 3.9-13.4 Eosinophils/100 leukocytes i n Blood by Automated count (test code = 713-8) 2.3 % 0.0-6.43 Basophils/100 leukocytes in Blood by Automated count (test code = 706-2) 1.5 % 0.0-0.72 H [facility]different[facility] panel, [id number] 07:45:00 NeutrophilsBandLymphocyteAtypical LymphMonocyteEosinophilBasophilNucleated Red Blood CellPlatelet EstimatePlatelet MorphologyPolychromasiaHypochromasiaPoikilocytosisAnisocytosisMicrocytosisMacroc ytosisSchistocytesTarget CellsTear Drop CellsOvalocytesStomatocyteSickle CellsDifferential comment-PMataWest Campus of Delta Regional Medical CenterMicroalbumin [Mass/volume] in [id number] 07:45:00* Test Item Value Reference Range Interpretation Comme nts microalbumin random (test co de = microalbumin random) <12.0 0-20 [facility] HospitalHemoglobin A1c [Mass/volume] in [id number] 07:45:00 * Test Item Value Reference Range Interpretation Comme nts Hemoglobin A1c in Blood (alec t code = [id number]) 7.8 % 4.0-6.0 [facility] - Serum or [id number] 07:45:00* Test Item Value Reference Range Interpretation Comme nts cholesterol level (test code = cholesterol level) 135 mg/dL 150-200 L triglycerides level (test co de = triglycerides level) 206 mg/dL <150 H HDL cholesterol (test code = HDL cholesterol) 26 mg/dL >55 L LDL cholesterol direct (test code = LDL cholesterol direct) 97 mg/dL <100 cholesterol risk ratio (test code = cholesterol risk ratio) 5.192 [facility] - Serum or [id number] 07:45:00* Test Item Value Reference Range Interpretation Comme nts Prostate specific Ag [Mass/v olume] in Serum or Plasma (test code = 2857-1) 5.72 NG/mL 0.0-4.00 free PSA % (test code = free PSA %) 26.50 % >25 free PSA (test code = free PSA) 1.52 NG/mL [facility]
--- NOTE | 2024-08-23 10:55 | RAD REPORT ---
EXAMINATION: Head Brain Wo Cont CLINICAL INDICATION: Male, 63 years old.Headache;Trauma TECHNIQUE: Axial CT images from the skull base to the vertex without intravenous contrast. Coronal an d sagittal reformatted images were created from the data set. One or more of the following dose reduction techniques were used: Automated exposure control, adjustment of the mA and/or kV according to patient size, and/or iterative reconstruction. Unless otherwise specified, incidental findings do not require dedicated imaging follow-up. [id number]. COMPARISON: No prior exam. FINDINGS: INTRACRANIAL: No acute intracranial hemorrhage. No hydrocephalus. No mass effect or midline shift. No significant white matter disease.Mild cerebral atrophy. VASCULATURE: No visualized abnormalities in the arteries or dural venous sinuses. SCALP/SKULL: No calvarial fracture identified. No acute soft tissue abnormality. SINUSES: Trace paranasal sinus thickening. No significant mastoid fluid. IMPRESSION: No acute intracranial abnormality.
--- NOTE | 2024-08-23 11:10 | ER ---
Nurse's Notes [facility] Name: Reta Chairez Age: 63 yrs Sex: Male : 1960 Arrival Date: 08/23/2024 Time: 10:04 Bed 17 Private MD: Diagnosis: Abrasion of unspecified part of head;Unspecified injury of head, initial encounter Presentation: 08/23 10:13 Chief complaint: Patient states: tree branch popped up and hit left side of forehead. jl7 Coronavirus screen: At this time, the client does not indicate any symptoms associated with coronavirus-19. Ebola Screen: No symptoms or risks identified at this time. Initial Sepsis Screen: Does the patient meet any 2 criteria? No. Patient's initial sepsis screen is negative. Does the patient have a suspected source of infection? No. Patient's initial sepsis screen is negative. Risk Assessment: Do you want to hurt yourself or someone else? Patient reports no desire to harm self or others. 10:13 Method Of Arrival: Ambulatory jl7 10:13 Acuity: TIKI 4 jl7 10:26 Mechanism of Injury: The problem was sustained at home, resulted from a direct blow, ap3 tree limb. Onset of symptoms was August 23, 2024. Triage Assessment: 10:14 General: Appears in no apparent distress. uncomfortable, Behavior is calm, cooperative, jl7 appropriate for age. Pain: Complains of pain in headache Pain currently is 3 out of 10 on a pain scale. Neuro: Level of Consciousness is awake, alert, obeys commands, Oriented to person, place, time, situation, Reports WISE. Historical: - Allergies: 10:14 Vancomycin; jl7 - PMHx: 10:14 Hypertensive disorder; Diabetes mellitus; jl7 - PSHx: 10:14 right knee; jl7 - Immunization history:: Adult Immunizations unknown. - Infectious Disease History:: Denies. - Social history:: Smoking status: Patient denies any tobacco usage or history of. Screenin:26 [facility] ED Fall Risk Assessment (Adult) History of falling in the last 3 months, ap3 including since admission No falls in past 3 months (0 pts) Confusion or Disorientation No (0 pts) Intoxicated or Sedated No (0 pts) Impaired Gait No (0 pts) Mobility Assist Device Used No (0 pt) Altered Elimination No (0 pt) Score/Fall Risk Level 0 - 2 = Low Risk Oriented to surroundings, Maintained a safe environment, Educated pt \T\ family on fall prevention, incl call for assistance when getting out of bed, Assessed \T\ reinforced patient's understanding of fall precautions, Hourly rounding (assess needs \T\ fall precautionary measures) done, Used ambulatory aids as needed (educated on \T\ assisted with). Abuse screen: Denies threats or abuse. Nutritional screening: No deficits noted. Tuberculosis screening: No symptoms or risk factors identified. Assessment: 10:25 General: Appears in no apparent distress. Behavior is calm, cooperative, appropriate ap3 for age. Pain: Complains of pain in forehead, left eye and left rastafari. Neuro: Level of Consciousness is awake, alert, obeys commands, Oriented to person, place, time, situation, Appropriate for age Speech is normal. Cardiovascular: Patient's skin is warm and dry. Respiratory: Airway is patent Respiratory effort is even, unlabored, Respiratory pattern is regular, symmetrical. GI: Patient currently denies nausea. Vital Signs: 10:13 BP 148 / 97; Pulse 77; Resp 17; Temp 98; Pulse Ox 100% ; Weight 101.6 kg; Height 5 ft. jl7 11 in. ; Pain 3/10; 10:47 BP 142 / 90; Pulse 66; Resp 17 S; Pulse Ox 100% on R/A; ap3 10:13 Body Mass Index 31.24 (101.60 kg, 180.34 cm) jl7 10:13 Pain Scale: Adult jl7 Ethan Coma Score: 10:26 Eye Response: spontaneous(4). Motor Response: obeys commands(6). Verbal Response: ap3 oriented(5). Total: 15. ED Course: 10:06 Patient arrived in ED. mr 10:07 Artis Mijares DO is Attending Physician. ms3 10:14 Triage completed. jl7 10:14 Arm band placed on right wrist. jl7 10:25 Oralia Puri, SUMI is Primary Nurse. ap3 10:26 No provider procedures requiring assistance completed. ap3 10:27 Patient has correct armband on for positive identification. Bed in low position. Call ap3 light in reach. Side rails up X2. Adult w/ patient. Provided Education on: fall risk education . Pulse ox on. NIBP on. 10:43 CT Head Brain wo Cont In Process Unspecified. EDMS 11:09 Jose Bhatti DO is Referral Physician. ms3 11:25 Patient did not have IV access during this emergency room visit. ap3 Administered Medications: 11:24 Drug: Boostrix Tdap IM 0.5 ml IM once; as a single dose Route: IM; Site: right deltoid; ap3 11:25 Follow up: Response: Medication administered at discharge. ap3 Medication: 11:25 Vaccine Information Statement (VIS) provided today. Questions and/or concerns ap3 addressed. VIS edition date: November 2022. Outcome: 11:10 Discharge ordered by MD. ms3 11:25 Discharged to home ambulatory, with family, ap3 11:25 Condition: good 11:25 Discharge instructions given to patient, family, Instructed on discharge instructions, follow up and referral plans. Demonstrated understanding of instructions, follow-up care, 11:26 Patient left the ED. ap3 Signatures: Dispatcher [employer] EDDC Nichol Arevalo, Boris Reg mr ValladaresalBrian, RN RN yoon7 Oralia Puri RN RN ap3 Artis Mijares DO DO ms3 Corrections: (The following items were deleted from the chart) 10:15 10:14 Allergies: No Known Allergies; marci covarrubias
--- NOTE | 2024-08-23 11:10 | EDPHYS ---
Physician Documentation [facility] Name: Reta Chairez Age: 63 yrs Sex: Male : 1960 Arrival Date: 08/23/2024 Time: 10:04 Bed 17 Private MD: ED Physician Artis Mijares HPI: 08/23 10:53 This 63 yrs old Male presents to ER via Ambulatory with complaints of Head ms3 Injury-Adult, Headache. 10:53 63-year-old male with past medical history of hypertension, diabetes presents to the [facility] emergency department for head trauma. Patient was working on a large limb propped against a tree when the limb slid off the tree causing the other end of the limb to strike him in the head. Patient denies loss of consciousness, states he takes a baby aspirin, and has not had nausea or vomiting.. Historical: - Allergies: 10:14 Vancomycin; jl7 - PMHx: 10:14 Hypertensive disorder; Diabetes mellitus; jl7 - PSHx: 10:14 right knee; jl7 - Immunization history:: Adult Immunizations unknown. - Infectious Disease History:: Denies. - Social history:: Smoking status: Patient denies any tobacco usage or history of. ROS: 10:53 Constitutional: Negative for fever, and chills. Cardiovascular: Negative for chest ms3 pain, and palpitations. Respiratory: Negative for shortness of breath, cough, wheezing, and pleuritic chest pain, Abdomen/GI: Negative for abdominal pain, nausea, vomiting, diarrhea, and constipation, 10:53 Neuro: Positive for headache, Exam: 10:53 Constitutional: This is a well developed, well nourished patient who is awake, alert, ms3 and in no acute distress. Cardiovascular: Regular rate and rhythm with a normal S1 and S2. No gallops, murmurs, or rubs. Normal PMI, no JVD. No pulse deficits. Respiratory: Lungs have equal breath sounds bilaterally, clear to auscultation and percussion. No rales, rhonchi or wheezes noted. No increased work of breathing, no retractions or nasal flaring. Abdomen/GI: Soft, non-tender, with normal bowel sounds. No distension or tympany. No guarding or rebound. No evidence of tenderness throughout. 10:53 Skin: abrasion to left side of head. Vital Signs: 10:13 BP 148 / 97; Pulse 77; Resp 17; Temp 98; Pulse Ox 100% ; Weight 101.6 kg; Height 5 ft. jl7 11 in. ; Pain 3/10; 10:47 BP 142 / 90; Pulse 66; Resp 17 S; Pulse Ox 100% on R/A; ap3 10:13 Body Mass Index 31.24 (101.60 kg, 180.34 cm) jl7 10:13 Pain Scale: Adult jl7 Ethan Coma Score: 10:26 Eye Response: spontaneous(4). Motor Response: obeys commands(6). Verbal Response: ap3 oriented(5). Total: 15. MDM: 10:25 Medical Screening Exam initiated ms3 10:53 Differential diagnosis: Contusion of Hematoma on Intracranial bleed-. ms3 11:19 Data reviewed: vital signs, nurses notes, radiologic studies, and as a result, I will ms3 discharge patient. I considered the following discharge prescriptions or medication management in the emergency department Medications were administered in the Emergency Department. See MAR. Counseling: I had a detailed discussion with the patient and/or guardian regarding the historical points, exam findings, and any diagnostic results supporting the discharge/admit diagnosis, radiology results, the need for outpatient follow up, to return to the emergency department if symptoms worsen or persist or if there are any questions or concerns that arise at home. Special discussion: I discussed with the patient/guardian in detail that at this point there is no indication for admission to the hospital. It is understood, however, that if the symptoms persist or worsen the patient needs to return immediately for re-evaluation. ED course: Discussed CT head results with patient. CT does not show intracranial hemorrhage or fractures. Patient to follow-up with primary care physician in 2 to 3 days. Patient understands and agrees with plan. All questions were answered. Return precautions discussed include worsening symptoms, vomiting, altered mental status, or any other concerns. On reevaluation patient is alert and orient x 4, no apparent distress, nontoxic-appearing, speaking full sentences, without emesis in the emergency department. 08/23 10:31 Order name: CT Head Brain wo Cont; Complete Time: 10:57 ms3 Administered Medications: 11:24 Drug: Boostrix Tdap IM 0.5 ml IM once; as a single dose Route: IM; Site: right deltoid; ap3 11:25 Follow up: Response: Medication administered at discharge. ap3 Disposition Summary: 08/23/24 11:10 Discharge Ordered Notes: Location: Home ms3 Condition: Stable ms3 Diagnosis - Abrasion of unspecified part of head ms3 - Unspecified injury of head, initial encounter ms3 Followup: ms3 - With: Jose Bhatti DO - When: 2 - 3 days - Reason: Discharge Instructions: - Discharge Summary Sheet ms3 - Head Injury, Adult ms3 - Head Injury, Adult, [id number] ms3 Forms: - Medication Reconciliation Form ms3 - Antibiotic Education ms3 - Prescription Opioid Use ms3 - Patient Portal Instructions ms3 - Leadership Thank You Letter ms3 Signatures: Dispatcher [employer] Brian Meza RN RN jl7 Oralia Puri RN RN ap3 Artis Mijares DO DO ms3 Corrections: (The following items were deleted from the chart) 10:15 10:14 Allergies: No Known Allergies; marci covarrubias
[2024-08-23] MEDS ORDERED: TDAP (DIPHTH,PERTUSS(ACELL),TET VAC) 0.5 ML VIAL IMVAC ONE (11:11)
[2024-08-23 11:44] VITALS: TEMP 98; O2SAT 100
[2024-08-23 11:45] VITALS: BP 142/90
== END 2024-08-23 11:26 | disposition home or self-care (01) ==
LOC: ER 10:04
DX: S00.81XA Abrasion of other part of head, initial encounter (principal); W22.8XXA Striking against or struck by other objects, initial encounter; Z23 Encounter for immunization
CPT/HCPCS: 70450; 90715; 96372; 99284